=== PATIENT | male | born 1970 | race Caucasian/White ===

== ENCOUNTER 2017-01-04 11:50 | Emergency (ER) | payer OTHER ==
[2017-01-04 12:05] VITALS: BP 120/76; PULSE 78; RESP 16; TEMP 98.1; O2SAT 100
--- NOTE | 2017-01-04 12:34 | C.PDOC ---
History Of Present Illness 46 yo male w/o significant PMHx come in for evaluation of URI sx c/w frontal headache, bodyaches for past few days. Pt also reports, Left lower toothache gradually worsen for past few days. Otherwise, pt denies high fever, chills, denies worse headache of life, visual changes, drooling, dysphagia, dyspnea, trismus, recent dental work, CP, SOB, wheezing, abd. pain, V/D, back pain. Ambulate to ED for evaluation, not in any apparent distress. Time Seen by Provider: 01/04/17 12:12 Chief Complaint (Nursing): Flu-like Symptoms History Per: Patient History/Exam Limitations: no limitations Onset/Duration Of Symptoms: Days Current Symptoms Are (Timing): Still Present Sick Contacts (Context): None Past Medical History Reviewed: Historical Data, Nursing Documentation, Vital Signs Vital Signs: Last Vital Signs Temp 98.1 F 01/04/17 12:03 Pulse 78 01/04/17 12:03 Resp 16 01/04/17 12:03 BP 120/76 01/04/17 12:03 Pulse Ox 100 01/04/17 12:48 Family History: States: No Known Family Hx - Social History Hx Alcohol Use: No Hx Substance Use: No - Immunization History Hx Tetanus Toxoid Vaccination: No Hx Influenza Vaccination: No Hx Pneumococcal Vaccination: No Review Of Systems Except As Marked, All Systems Reviewed And Found Negative. Constitutional: Negative for: Fever, Chills Eyes: Negative for: Vision Change ENT: Positive for: Other ((+) Left lower toothache) Cardiovascular: Negative for: Chest Pain Respiratory: Negative for: Shortness of Breath, Wheezing Gastrointestinal: Negative for: Vomiting, Abdominal Pain, Diarrhea Musculoskeletal: Negative for: Back Pain Neurological: Positive for: Headache (Frontal headache, Not the worse headache of life. ) Physical Exam - Physical Exam Appears: Well, Non-toxic, No Acute Distress Skin: Normal Color, Warm, No Rash Head: Atraumatic, Normacephalic Eye(s): bilateral: Normal Inspection Ear(s): Bilateral: Normal Nose: Discharge (B/L nasal congestion.) Oral Mucosa: Moist, No Drooling, No Trismus Tongue: Normal Appearing Lips: Normal Appearing Teeth: Tender To Palpation (mild tenderness overlying Left lower wisdom. NO evidence of abscess/flactulance.) Gingiva: Erythema (Left lower wisdom.), No Swelling, Tender, No Abscess Throat: Normal, No Erythema, No Exudate, No Drooling Neck: Normal, Normal ROM, Supple Cardiovascular: Rhythm Regular Respiratory: Normal Breath Sounds, No Stridor, No Wheezing Gastrointestinal/Abdominal: Normal Exam, Soft, No Tenderness Back: Normal Inspection Extremity: Normal ROM, No Deformity Neurological/Psych: Oriented x3, Normal Speech ED Course And Treatment O2 Sat by Pulse Oximetry: 100 Pulse Ox Interpretation: Normal Progress Note: Pt denies hx of allergy to medication in cluding Penicillin. On re-evaluation, pt is afebrile, hemodynamiclay stable. Tolerate Po well in ED. Ambulatory in ED, not in any apparent distress. PulseOx 100% RA. ENT: (+)mild gingivitis Left lower wisdom. uvula midline, no edema.No evidence of tooth abscess. neck: (-) meningeal sign,. Lungs: CTA B/L, BS equal B/L. Neuorlogicaly intact. Parent advised on course of ds. ref. to F/u with PMD, Dentist in 2-3 days for re-eval. Disposition Counseled Patient/Family Regarding: Diagnosis, Need For Followup - Disposition Referrals: Rishi Jade MD [Staff Provider] - Disposition Time: 12:31 Condition: STABLE Additional Instructions: Encourage fluids Take medication as prescribed Bedrest for 2-3 days Follow up with PMD in 2-3 days for re-evaluation. Return to ED if any worsening or new changes. Prescriptions: Penicillin VK [Pen-Vee K] 2 tab PO BID #28 tab Chlorhexidine Gluconate [Peridex 473 ml] 5 ml PO TID #1 bottle Instructions: Toothache (ED) - Clinical Impression Clinical Impression: Toothache - PA / TERRITORY REPRESENTATIVE / Resident Statement MD/ has reviewed & agrees with the documentation as recorded. - Scribe Statement The provider has reviewed the documentation as recorded by the Scribe Shannon Sharpe All medical record entries made by the Scribe were at my direction and personally dictated by me. I have reviewed the chart and agree that the record accurately reflects my personal performance of the history, physical exam, medical decision making, and the department course for this patient. I have also personally directed, reviewed, and agree with the discharge instructions and disposition.
== END 2017-01-04 12:50 | disposition home or self-care (01) ==
LOC: C.ER 11:50
DX: K08.89 Other specified disorders of teeth and supporting structures (principal)